=== PATIENT | female | born 1970 | race Caucasian/White ===

== ENCOUNTER 2022-10-16 19:09 | Emergency (ER) | payer SELFPAY ==
[2022-10-16] MEDS ORDERED: Albuterol/Ipratropium 3.0-0.5 MG/3 ML Neb Soln NEB ONE (19:28)
[2022-10-16] MEDS ORDERED: Acetaminophen 325 MG Tab PO ONE (19:39)
[2022-10-16 19:52] LABS: ESTIMATED GFR 88 mL/min (>60)
[2022-10-16 20:24] LABS: CORONAVIRUS COVID-19 NAA NEGATIVE (NEGATIVE)
[2022-10-16] MEDS ORDERED: Levofloxacin 750 MG Tab PO SCH (21:00)
[2022-10-16] MEDS ORDERED: Azithromycin 500 MG Tab PO SCH (21:00)
== END 2022-10-16 21:12 | disposition home or self-care (01) ==
LOC: FB.ED 19:09
DX: J18.9 Pneumonia, unspecified organism (principal); Z88.1 Allergy status to other antibiotic agents; Z88.0 Allergy status to penicillin; Z88.6 Allergy status to analgesic agent; Z79.899 Other long term (current) drug therapy; Z90.49 Acquired absence of other specified parts of digestive tract; Z20.822 Contact with and (suspected) exposure to COVID-19
CPT/HCPCS: 0241U; 36415; 71045; 80048; 85025; 86140; 94640; 99284; A9270; J7620

== ENCOUNTER 2023-09-15 19:18 | Emergency (ER) | payer BC ==
[2023-09-15] MEDS ORDERED: Ondansetron 4 MG Tab.DIS PO ONE (19:19)
[2023-09-15] MEDS ORDERED: Sodium Chloride 0.9% 10 ML Syringe FLUSH PRN (19:23)
[2023-09-15] MEDS: Sodium Chloride 0.9% 1,000 ML IV SCH (19:37)
[2023-09-15] MEDS: Ondansetron 4 MG/2 ML SDV IVPUSH ONE (19:37)
[2023-09-15 19:44] LABS: HEMATOCRIT 42.6 % (34.2-48.2); HEMOGLOBIN 13.9 g/dL (11.4-15.5); MEAN CORPUSCULAR HEMOGLOBIN 25.1 pg (23.9-33.9); MEAN CORPUSCULAR HGB CONC 32.8 g/dL (31.9-34.8); MEAN CORPUSCULAR VOLUME 76.6 fL (76.7-100.5); MEAN PLATELET VOLUME 8.4 fL (7.1-12.4); PLATELET COUNT,PLT 221 x10(3)uL (151-488); RED BLOOD CELL COUNT 5.56 x10(6)uL (3.60-5.20); RED CELL DISTRIBUTION WIDTH 15.8 % (12.3-16.5); WHITE BLOOD CELL COUNT,WBC 11.6 x10-3/uL (3.0-10.3)
[2023-09-15 19:47] LABS: BLOOD UREA NITROGEN,BUN 14 mg/dL (7-18); CALCIUM 9.5 mg/dL (8.6-10.2); CARBON DIOXIDE,CO2 26 mmol/L (21-32); CHLORIDE,CL 98 mmol/L (100-110); CREATININE 0.7 mg/dL (0.55-1.02); ESTIMATED GFR 103 mL/min (>60); GLUCOSE RANDOM 232 mg/dL (80-116); POTASSIUM,K 3.8 mmol/L (3.5-5.3); SODIUM,NA 135 mmol/L (135-145)
[2023-09-15 19:53] LABS: A/G RATIO 0.9; ALANINE AMINOTRANSFERASE,ALT 86 U/L (12-36); ALBUMIN 3.7 g/dL (3.5-5.2); ALKALINE PHOSPHATASE 105 IU/L (56-112); ASPARTATE AMNIOTRANSFERASE,AST 28 IU/L (5-25); BILIRUBIN TOTAL 1.5 mg/dL (0.1-1.3); PROTEIN TOTAL,TP 7.7 g/dL (6.0-8.0)
[2023-09-15 19:57] LABS: LYMPHOCYTES PERCENT MAN 8 % (13-37); MONOCYTES PERCENT MAN 5 % (4-12); SEG NEUTROPHILS PERCENT MAN 87 % (46-82)
[2023-09-15 20:17] LABS: INFLUENZA A NAA NEGATIVE (NEGATIVE); INFLUENZA B NAA NEGATIVE (NEGATIVE); RESPIRATORY SYNCYTIAL VIR NAA NEGATIVE (NEGATIVE)
[2023-09-15] MEDS: Ketorolac 30 MG/ML SDV IVPUSH ONE (20:28)
[2023-09-15] MEDS: Prochlorperazine 10 MG/2 ML SDV IVPUSH ONE (20:28)
[2023-09-15 20:33] LABS: CORONAVIRUS COVID-19 NAA NEGATIVE (NEGATIVE)
[2023-09-15] MEDS: Iopamidol 755 Mg/ML 100 ML Bottle IV SCH (20:33)
[2023-09-15 21:14] LABS: BILIRUBIN,URINE NEGATIVE (NEGATIVE); GLUCOSE,URINE 100 mg/dL (NORMAL); KETONES,URINE 15 mg/dL (NEGATIVE); LEUKOCYTE ESTERASE,URINE NEGATIVE (NEGATIVE); NITRITE,URINE NEGATIVE (NEGATIVE); OCCULT BLOOD,URINE MODERATE (NEGATIVE); PROTEIN,URINE NEGATIVE (NEGATIVE); UROBILINOGEN,URINE NORMAL (NEGATIVE)
[2023-09-15 21:17] LABS: APPEARANCE,URINE CLEAR (CLEAR); BACTERIA,URINE FEW (NS); COLOR,URINE YELLOW (YELLOW); SQUAMOUS EPITHELIAL CELLS,UR FEW (NS,R,O); WBC,URINE 0-5 (0-5)
== END 2023-09-15 21:33 | disposition home or self-care (01) ==
LOC: FB.ED 19:18
DX: K52.9 Noninfective gastroenteritis and colitis, unspecified (principal); K63.89 Other specified diseases of intestine; E11.9 Type 2 diabetes mellitus without complications; Z88.0 Allergy status to penicillin; Z88.8 Allergy status to other drugs, medicaments and biological substances; Z90.49 Acquired absence of other specified parts of digestive tract
CPT/HCPCS: 0241U; 74177; 80053; 81001; 82150; 83690; 85025; 96361; 96374; 96375; 99284; J0780; J1885; J2405; J7030; Q9967; Q0162

== ENCOUNTER 2024-09-06 10:11 | Emergency (ER) | payer OTHER, BC ==
[2024-09-06] MEDS: Acetaminophen 500 MG Tab PO ONE (11:12)
[2024-09-06] MEDS: Ibuprofen 800 MG Tab PO ONE (11:12)
== END 2024-09-06 12:15 | disposition home or self-care (01) ==
LOC: FB.ED 10:11
DX: S16.1XXA Strain of muscle, fascia and tendon at neck level, initial encounter (principal); R07.89 Other chest pain; E78.00 Pure hypercholesterolemia, unspecified; E11.9 Type 2 diabetes mellitus without complications; Z90.49 Acquired absence of other specified parts of digestive tract; Z79.899 Other long term (current) drug therapy; Z88.5 Allergy status to narcotic agent; Z88.0 Allergy status to penicillin; Z91.012 Allergy to eggs; Z91.018 Allergy to other foods; V40.5XXA Car driver injured in collision with pedestrian or animal in traffic accident, initial encounter; Y92.410 Unspecified street and highway as the place of occurrence of the external cause
CPT/HCPCS: 71101; 99283; A9270